=== PATIENT | male | born 1995 | race African-American/Black ===

== ENCOUNTER 2017-11-07 15:08 | Emergency (ER) | payer SELFPAY ==
[~2017-11-07] VITALS: Ht 172.7 cm; Wt 61.0 kg
[~2017-11-07 15:08] MED LIST: IBUPROFEN 200MG TABLET ONE
[2017-11-07] MEDS ORDERED: IBUPROFEN 600MG TABLET PO ONE (16:00)
[2017-11-07 20:20] VITALS: BP 113/64
== END 2017-11-08 00:05 | disposition home or self-care (01) ==
LOC: ER 15:43
DX: M25.531 Pain in right wrist (principal); S00.93XA Contusion of unspecified part of head, initial encounter; V49.50XA Passenger injured in collision with unspecified motor vehicles in traffic accident, initial encounter; Y93.89 Activity, other specified; Y92.410 Unspecified street and highway as the place of occurrence of the external cause
CPT/HCPCS: 73110; 99284